=== PATIENT | male | born 1995 | race Caucasian/White ===

== ENCOUNTER 2018-11-27 11:09 | Emergency (ER) | payer BC ==
[~2018-11-27] VITALS: Ht 177.8 cm; Wt 104.5 kg
[2018-11-27 11:26] VITALS: TEMP 98.6
[2018-11-27 13:00] VITALS: BP 120/81; PULSE 68
== END 2018-11-27 13:05 | disposition home or self-care (01) ==
LOC: COL.ER 11:09
DX: S05.01XA Injury of conjunctiva and corneal abrasion without foreign body, right eye, initial encounter (principal); W22.8XXA Striking against or struck by other objects, initial encounter